=== PATIENT | female | born 1990 | race Caucasian/White ===

== ENCOUNTER 2017-02-22 10:57 | Emergency (ER) | payer OTHER ==
[~2017-02-22] VITALS: Ht 162.6 cm; Wt 55.0 kg
[~2017-02-22 10:57] MED LIST: BACT800T5 PO; BENZ0.5T PO; CLON.5 PO; GEOD60CA PO; LAMI200T PO; MAGN1SOL2 PO; WELL150T PO; ZOFR4TAB3 SL
[2017-02-22 11:33] VITALS: BP 102/52; PULSE 90; RESP 18; TEMP 98.3; O2SAT 98
[2017-02-22 11:39] LABS: AUTOMATED NEUTROPHIL # 3.7 TH/MM3 (1.8-7.7); BASOPHIL % 0.7 % (0.0-2.0); EOSINOPHIL # 0.3 TH/MM3 (0-0.4); EOSINOPHIL % 5.5 % (0.0-4.0); HEMATOCRIT 38.2 % (35.0-46.0); HEMOGLOBIN 13.8 GM/DL (11.6-15.3); LYMPH % 22.1 % (9.0-44.0); LYMPHOCYTE # 1.3 TH/MM3 (1.0-4.8); MEAN CELL VOLUME 89.1 FL (80.0-100.0); MEAN CORPUSCULAR HEMOGLOBIN 32.2 PG (27.0-34.0); MEAN PLATELET VOLUME 9.2 FL (7.0-11.0); MONOCYTE # 0.5 TH/MM3 (0-0.9); NEUT % 63.7 % (16.0-70.0); PLATELET COUNT 316 TH/MM3 (150-450); RED BLOOD COUNT 4.29 MIL/MM3 (4.00-5.30); RED CELL DISTRIBUTION WIDTH 12.9 % (11.6-17.2); WHITE BLOOD COUNT 5.7 TH/MM3 (4.0-11.0)
[2017-02-22 11:51] LABS: MEAN CORPUSCULAR HGB CONC 36.2 % (32.0-36.0)
[2017-02-22 11:57] LABS: ALT (GPT) 50 U/L (10-53); AST (GOT) 16 U/L (15-37); BICARBONATE 31.5 MEQ/L (21.0-32.0); BLOOD UREA NITROGEN 20 MG/DL (7-18); CALCIUM 8.6 MG/DL (8.5-10.1); CHLORIDE 105 MEQ/L (98-107); CREATININE 0.94 MG/DL (0.50-1.00); GLOMERULAR FILTRATION RATE 73 ML/MIN (>89); GLUCOSE,RANDOM 84 MG/DL (74-106); SODIUM (NA) 140 MEQ/L (136-145)
[2017-02-22 11:59] LABS: ALKALINE PHOSPHATASE 61 U/L (45-117); TOTAL BILIRUBIN ADULT 0.4 MG/DL (0.2-1.0); TOTAL PROTEIN 7.2 GM/DL (6.4-8.2)
--- NOTE | 2017-02-22 12:55 | PD ---
HPI Chief Complaint: Psychiatric Symptoms Time Seen by Provider: 11:16 Travel History International Travel<30 days: No Contact w/Intl Traveler<30days: No Traveled to known affect area: No History of Present Illness HPI Patient's 26-year-old female presenting to emergency for under Hood act due to and attempted overdose and suicidal ideations. Patient states that she took 10 Xanax at 9 PM last night in an attempt to escape everything. She lives with her grandmother but she reported this to her mother who then called 911. Patient reports a previous suicide attempt 2 years ago. She reports a history of bipolar disorder, PTSD. She will not elaborate as to why she is feeling more depressed and suicidal stating that it was private. She denies any physical complaints at this time, patient states that she has a job working for the [employer] and it's very stressful. Patient further stated that she thought about taking other medications that she had access to but didn't. She reports that she only takes a certain amount of pills to overdose because she is afraid of actually doing it. PFSH Past Medical History Bipolar Disorder: Yes Anxiety: Yes Depression: Yes Cardiovascular Problems: No Diminished Hearing: No Gastrointestinal Disorders: Yes (SPLEENOMEGALY) Genitourinary: No Musculoskeletal: No Neurologic: No Reproductive: No Respiratory: No Immunizations Current: Yes Schizophrenia: Yes ?: Not : 0 Past Surgical History Other Surgery: No Social History Alcohol Use: Yes (RARELY) Tobacco Use: No Substance Use: No Allergies-Medications (Allergen,Severity, Reaction): Coded Allergies: No Known Allergies (Unverified Adverse Reaction, Unknown, 02/22/17) Reported Meds & Prescriptions Reported Meds & Active Scripts Active Zofran ODT (Ondansetron HCl) 4 Mg Tab 4 Mg SL Q6HR FOR NAUSEA/VOMITING Magnesium Citrate 300 Ml Soln 300 Ml PO DIRECTED PRN Bactrim DS (Sulfamethoxazole-Trimethoprim DS) 1 Tab Tab 1 Tab PO BID 7 Days Reported Geodon (Ziprasidone) 60 Mg Cap 120 Mg PO HS Klonopin (Clonazepam) 0.5 Mg Tab 0.5 Mg PO HS Wellbutrin Sr (Bupropion HCl) 150 Mg Tab 300 Mg PO Cogentin (Benztropine Mesylate) 0.5 Mg Tab 0.5 Mg PO HS Lamictal (Lamotrigine) 200 Mg Tab 200 Mg PO HS Review of Systems Except as stated in HPI: all other systems reviewed are Neg Psychiatric: Positive: Depression, Suicidal Ideations Physical Exam Narrative GENERAL: Well-developed, well-nourished, alert female. Resting in no acute distress. SKIN: Warm and dry. HEAD: Atraumatic. Normocephalic. EYES: Pupils equal and round. No scleral icterus. No injection or drainage. ENT: No nasal bleeding or discharge. Mucous membranes pink and moist. NECK: Trachea midline. No JVD. CARDIOVASCULAR: Regular rate and rhythm. RESPIRATORY: No accessory muscle use. Clear to auscultation. Breath sounds equal bilaterally. GASTROINTESTINAL: Abdomen soft, non-tender, nondistended. Hepatic and splenic margins not palpable. MUSCULOSKELETAL: Extremities without clubbing, cyanosis, or edema. No obvious deformities. NEUROLOGICAL: Awake and alert. No obvious cranial nerve deficits. Motor grossly within normal limits. Five out of 5 muscle strength in the arms and legs. Normal speech. PSYCHIATRIC: Flat mood and affect; insight and judgment normal. Data Data Last Documented VS Vital Signs Date Time Temp Pulse Resp B/P (MAP) Pulse Ox O2 Delivery O2 Flow Rate FiO2 02/22/17 11:33 98.3 90 18 102/52 (69) 98 Orders Orders Complete Blood Count With Diff (02/22/17 11:17) Comprehensive Metabolic Panel (02/22/17 11:17) Psych Screen (02/22/17 11:17) Drug Screen, Random Urine (02/22/17 11:17) Alcohol (Ethanol) (02/22/17 11:17) Diet Regular Basic (02/22/17 Lunch) Ed Discharge Order (02/22/17 13:36) Labs Laboratory Tests Test 02/22/17 11:23 02/22/17 11:30 White Blood Count 5.7 TH/MM3 Red Blood Count 4.29 MIL/MM3 Hemoglobin 13.8 GM/DL Hematocrit 38.2 % Mean Corpuscular Volume 89.1 FL Mean Corpuscular Hemoglobin 32.2 PG Mean Corpuscular Hemoglobin Concent 36.2 % Red Cell Distribution Width 12.9 % Platelet Count 316 TH/MM3 Mean Platelet Volume 9.2 FL Neutrophils (%) (Auto) 63.7 % Lymphocytes (%) (Auto) 22.1 % Monocytes (%) (Auto) 8.0 % Eosinophils (%) (Auto) 5.5 % Basophils (%) (Auto) 0.7 % Neutrophils # (Auto) 3.7 TH/MM3 Lymphocytes # (Auto) 1.3 TH/MM3 Monocytes # (Auto) 0.5 TH/MM3 Eosinophils # (Auto) 0.3 TH/MM3 Basophils # (Auto) 0.0 TH/MM3 CBC Comment AUTO DIFF Differential Comment AUTO DIFF CONFIRMED Blood Urea Nitrogen 20 MG/DL Creatinine 0.94 MG/DL Random Glucose 84 MG/DL Total Protein 7.2 GM/DL Albumin 4.0 GM/DL Calcium Level 8.6 MG/DL Alkaline Phosphatase 61 U/L Aspartate Amino Transf (AST/SGOT) 16 U/L Alanine Aminotransferase (ALT/SGPT) 50 U/L Total Bilirubin 0.4 MG/DL Sodium Level 140 MEQ/L Potassium Level 4.6 MEQ/L Chloride Level 105 MEQ/L Carbon Dioxide Level 31.5 MEQ/L Anion Gap 4 MEQ/L Estimat Glomerular Filtration Rate 73 ML/MIN Ethyl Alcohol Level LESS THAN 3 MG/DL Urine Opiates Screen NEG Urine Barbiturates Screen NEG Urine Amphetamines Screen NEG Urine Benzodiazepines Screen POS Urine Cocaine Screen NEG Urine Cannabinoids Screen NEG MDM Medical Decision Making Medical Screen Exam Complete: Yes Emergency Medical Condition: Yes Interpretation(s) Laboratory Tests Test 02/22/17 11:23 02/22/17 11:30 White Blood Count 5.7 TH/MM3 Red Blood Count 4.29 MIL/MM3 Hemoglobin 13.8 GM/DL Hematocrit 38.2 % Mean Corpuscular Volume 89.1 FL Mean Corpuscular Hemoglobin 32.2 PG Mean Corpuscular Hemoglobin Concent 36.2 % Red Cell Distribution Width 12.9 % Platelet Count 316 TH/MM3 Mean Platelet Volume 9.2 FL Neutrophils (%) (Auto) 63.7 % Lymphocytes (%) (Auto) 22.1 % Monocytes (%) (Auto) 8.0 % Eosinophils (%) (Auto) 5.5 % Basophils (%) (Auto) 0.7 % Neutrophils # (Auto) 3.7 TH/MM3 Lymphocytes # (Auto) 1.3 TH/MM3 Monocytes # (Auto) 0.5 TH/MM3 Eosinophils # (Auto) 0.3 TH/MM3 Basophils # (Auto) 0.0 TH/MM3 CBC Comment AUTO DIFF Differential Comment AUTO DIFF CONFIRMED Blood Urea Nitrogen 20 MG/DL Creatinine 0.94 MG/DL Random Glucose 84 MG/DL Total Protein 7.2 GM/DL Albumin 4.0 GM/DL Calcium Level 8.6 MG/DL Alkaline Phosphatase 61 U/L Aspartate Amino Transf (AST/SGOT) 16 U/L Alanine Aminotransferase (ALT/SGPT) 50 U/L Total Bilirubin 0.4 MG/DL Sodium Level 140 MEQ/L Potassium Level 4.6 MEQ/L Chloride Level 105 MEQ/L Carbon Dioxide Level 31.5 MEQ/L Anion Gap 4 MEQ/L Estimat Glomerular Filtration Rate 73 ML/MIN Ethyl Alcohol Level LESS THAN 3 MG/DL Urine Opiates Screen NEG Urine Barbiturates Screen NEG Urine Amphetamines Screen NEG Urine Benzodiazepines Screen POS Urine Cocaine Screen NEG Urine Cannabinoids Screen NEG Vital Signs Date Time Temp Pulse Resp B/P (MAP) Pulse Ox O2 Delivery O2 Flow Rate FiO2 02/22/17 11:33 98.3 90 18 102/52 (69) 98 02/22/17 11:16 85 16 Differential Diagnosis Mood disorder versus of suicidal ideations versus metabolic abnormality versus respiratory depression versus other Narrative Course She presented under Drake act her to suicidal ideations and attempted overdose. Patient's vital signs are stable, she is alert and cooperative at this time. Mental health screening discussed with the patient. Psychiatric screen ordered. Labs reviewed, no acute findings identified. Medically cleared for psychiatric evaluation. After patient was medically cleared, psychiatrist evaluated patient left at the [facility]. Patient was diagnosed with benzodiazepine abuse as well as borderline personality disorder. Patient is stable for discharge. Diagnosis Primary Impression: Medical clearance for psychiatric admission Additional Impression: Benzodiazepine abuse Referrals: [facility] Patient Instructions: Benzodiazepine Abuse (ED), General Instructions Additional Instructions: Take medications only as directed Follow-up with Rey Romero Follow-up with your primary doctor's office Return to emergency department for any new or worsening symptoms Med/Other Pt SpecificInfo: No Change to Meds Disposition: 01 DISCHARGE HOME Condition: Stable Kasia Quijano Feb 22, 2017 12:55
--- NOTE | 2017-02-22 13:19 | PD ---
History of Present Illness Chief Complaint: Psychiatric Symptoms Time Seen by Provider: 12:45 Travel History International Travel<30 Days: No Contact w/Intl Traveler<30days: No Known affected area: No Legal Status Legal Status: Hood Act History of Present Illness: 26-year-old female brought in under a Hood act for taking 10 Xanax pills last night and making suicidal type comments. Upon interview this afternoon, the patient is currently denying any suicidal or homicidal ideation, plan or intent. She states she does sometimes think about it but her actions last night were not intended to kill herself. As she reported to the emergency department attending last evening, she had other medicines she could have taken if she really wanted to . She states she has her "dream job" at the present time and doesn't want to do anything to jeopardize this job. She does report a history of suicidal behavior 2 years ago and a history of bipolar disorder and PTSD. She will not elaborate on the source of her PTSD. She attributes this abuse of Xanax on her bipolar disorder stating "if you know bipolar disorder, you know these feelings come over me suddenly". (This physician sees no current significant objective clinical evidence of bipolar disorder.) Patient appears to have borderline personality disorder. PFSH Past Medical History Bipolar Disorder: Yes Anxiety: Yes Depression: Yes Cardiovascular Problems: No Diminished Hearing: No Gastrointestinal Disorders: Yes (SPLEENOMEGALY) Genitourinary: No Musculoskeletal: No Neurologic: No Reproductive: No Respiratory: No Immunizations Current: Yes Schizophrenia: Yes ?: Not : 0 Past Surgical History Other Surgery: No Psychiatric History Psychiatric History Hx Psychiatric Treatment: has been treated by Dr.Nelita Leo MD psychiatrist for the past 2 years. has been placed under a Hood Act twice and admitted x1 at [facility] and x1 and admitted to [facility]. States that she has been noncompliant with medications because of her nights and days run together. Biological father (Bipolar/Schizophrenia) and biological paternal grandmother (Bipolar/Schizophrenia). Biological Maternal grandmother's brother (Bipolar) successfully commited suicide by shooting himself in the head at age 29. Patient fears growing up like her father. History of Inpatient Treatment: Yes Social History Hx Alcohol Use: Yes (RARELY) Hx Tobacco Use: No Hx Substance Use: No Substance Use Type: Alcohol, Marijuana, Amphetamines-Stimulants, Ecstasy, Nicotine/Cigarettes, Prescription Medications, Benzos (Valium,Xanax), Cocaine, Synth Opiates-Pain Pills Other Substances Used: Hx Mollie Use per . Hx of Substance Use Treatment: No Allergies-Medications (Allergen,Severity, Reaction): Coded Allergies: No Known Allergies (Unverified Adverse Reaction, Unknown, 02/22/17) Reported Meds & Prescriptions Reported Meds & Active Scripts Active Zofran ODT (Ondansetron HCl) 4 Mg Tab 4 Mg SL Q6HR FOR NAUSEA/VOMITING Magnesium Citrate 300 Ml Soln 300 Ml PO DIRECTED PRN Bactrim DS (Sulfamethoxazole-Trimethoprim DS) 1 Tab Tab 1 Tab PO BID 7 Days Reported Geodon (Ziprasidone) 60 Mg Cap 120 Mg PO HS Klonopin (Clonazepam) 0.5 Mg Tab 0.5 Mg PO HS Wellbutrin Sr (Bupropion HCl) 150 Mg Tab 300 Mg PO Cogentin (Benztropine Mesylate) 0.5 Mg Tab 0.5 Mg PO HS Lamictal (Lamotrigine) 200 Mg Tab 200 Mg PO HS Review of Systems Except as stated in HPI: all other systems reviewed are Neg Mental Status Examination Appearance: Appropriate Consciousness: Alert Orientation: x4 Motor Activity: Normal gait Speech: Unremarkable Language: Adequate Fund of Knowledge: Adequate Attention and Concentration: Adequate Memory: Unremarkable Mood: Appropriate Affect: Appropriate Thought Process & Associations: Intact Thought Content: Appropriate Hallucination Type: None Delusion Type: None Suicidal Ideation: No Suicidal Plan: No Suicidal Intention: No Homicidal Ideation: No Homicidal Plan: No Homicidal Intention: No Insight: Adequate Judgment: Adequate MDM Medical Decision Making Medical Record Reviewed: Yes Assessment/Plan Patient interviewed at bedside. Electronic medical record reviewed. Case discussed with nurse Wanda. Patient appears to have borderline personality disorder and would best be served by not admitting her to the hospital. It is felt to be important the patient continue to work. She lives with her grandparents. She is willing and able to seek outpatient treatment. She was given a referral to Dr. Sea Loco even though she currently has outpatient treatment. She is verbally brian for safety and she is competent to do so. Least restrictive alternative also applies. Orders Orders Complete Blood Count With Diff (02/22/17 11:17) Comprehensive Metabolic Panel (02/22/17 11:17) Psych Screen (02/22/17 11:17) Drug Screen, Random Urine (02/22/17 11:17) Alcohol (Ethanol) (02/22/17 11:17) Diet Regular Basic (02/22/17 Lunch) Results Vital Signs Date Time Temp Pulse Resp B/P (MAP) Pulse Ox O2 Delivery O2 Flow Rate FiO2 02/22/17 11:33 98.3 90 18 102/52 (69) 98 02/22/17 11:16 85 16 Laboratory Tests Test 02/22/17 11:23 02/22/17 11:30 White Blood Count 5.7 Red Blood Count 4.29 Hemoglobin 13.8 Hematocrit 38.2 Mean Corpuscular Volume 89.1 Mean Corpuscular Hemoglobin 32.2 Mean Corpuscular Hemoglobin Concent 36.2 Red Cell Distribution Width 12.9 Platelet Count 316 Mean Platelet Volume 9.2 Neutrophils (%) (Auto) 63.7 Lymphocytes (%) (Auto) 22.1 Monocytes (%) (Auto) 8.0 Eosinophils (%) (Auto) 5.5 Basophils (%) (Auto) 0.7 Neutrophils # (Auto) 3.7 Lymphocytes # (Auto) 1.3 Monocytes # (Auto) 0.5 Eosinophils # (Auto) 0.3 Basophils # (Auto) 0.0 CBC Comment AUTO DIFF Differential Comment AUTO DIFF CONFIRMED Blood Urea Nitrogen 20 Creatinine 0.94 Random Glucose 84 Total Protein 7.2 Albumin 4.0 Calcium Level 8.6 Alkaline Phosphatase 61 Aspartate Amino Transf (AST/SGOT) 16 Alanine Aminotransferase (ALT/SGPT) 50 Total Bilirubin 0.4 Sodium Level 140 Potassium Level 4.6 Chloride Level 105 Carbon Dioxide Level 31.5 Anion Gap 4 Estimat Glomerular Filtration Rate 73 Ethyl Alcohol Level LESS THAN 3 Urine Opiates Screen NEG Urine Barbiturates Screen NEG Urine Amphetamines Screen NEG Urine Benzodiazepines Screen POS Urine Cocaine Screen NEG Urine Cannabinoids Screen NEG Diagnosis Primary Impression: Benzodiazepine abuse Condition: Stable Fam Bear MD Feb 22, 2017 13:19
[2017-02-22 14:10] VITALS: BP_SYST 101; BP_SYST 109; BP_SYST 113; BP_DIAS 55; BP_DIAS 68; BP_DIAS 73
[2017-02-22 14:15] VITALS: BP 101/55
== END 2017-02-22 14:05 | disposition home or self-care (01) ==
LOC: NEPD 10:57
DX: F13.10 Sedative, hypnotic or anxiolytic abuse, uncomplicated (principal); F31.9 Bipolar disorder, unspecified; F20.9 Schizophrenia, unspecified; F41.9 Anxiety disorder, unspecified; R45.851 Suicidal ideations
CPT/HCPCS: 80053; 80307; 85025; 99284

== ENCOUNTER 2017-05-28 15:53 | Emergency (ER) | payer OTHER ==
[~2017-05-28] VITALS: Ht 172.7 cm; Wt 67.2 kg
[2017-05-28 15:56] VITALS: BP 150/91; PULSE 75; RESP 16; TEMP 97.8; O2SAT 99
[2017-05-28] MEDS ORDERED: WELLTAB39 PO (16:23)
[2017-05-28] MEDS ORDERED: LAMI200T PO (16:23)
[2017-05-28] MEDS ORDERED: PERI0.126 SWISH-SPIT (16:26)
[2017-05-28] MEDS ORDERED: CLIN300C5 PO (16:26)
--- NOTE | 2017-05-28 16:28 | PD ---
HPI Chief Complaint: Oral / Dental Pain or Problem Time Seen by Provider: 16:18 Travel History International Travel<30 days: No Contact w/Intl Traveler<30days: No Traveled to known affect area: No History of Present Illness HPI 26-year-old female presents to the emergency department for possible dental infection. Patient states that she noticed swelling and felt like something ruptured today. She states she feels like she has a fever, but she does not. She reports history of bipolar disorder. She denies . Patient states she was supposed to have a root canal, but did not. Current pain/10, aching, without radiation. Mild severity. PFSH Past Medical History Bipolar Disorder: Yes Anxiety: Yes Depression: Yes Cardiovascular Problems: No Diminished Hearing: No Gastrointestinal Disorders: Yes (hx of SPLEENOMEGALY) Genitourinary: No Musculoskeletal: No Neurologic: No Reproductive: No Respiratory: No Immunizations Current: Yes Schizophrenia: Yes Tetanus Vaccination: Unknown Influenza Vaccination: No ?: Not LMP: 05/01/17 : 0 Past Surgical History Surgical History: No Previous Surgery Other Surgery: No Social History Alcohol Use: Yes (RARELY) Tobacco Use: No Substance Use: No Allergies-Medications (Allergen,Severity, Reaction): Coded Allergies: No Known Allergies (Unverified Adverse Reaction, Unknown, 05/28/17) Reported Meds & Prescriptions Reported Meds & Active Scripts Active Zofran ODT (Ondansetron HCl) 4 Mg Tab 4 Mg SL Q6HR FOR NAUSEA/VOMITING Magnesium Citrate 300 Ml Soln 300 Ml PO DIRECTED PRN Bactrim DS (Sulfamethoxazole-Trimethoprim DS) 1 Tab Tab 1 Tab PO BID 7 Days Reported Geodon (Ziprasidone) 60 Mg Cap 120 Mg PO HS Klonopin (Clonazepam) 0.5 Mg Tab 0.5 Mg PO HS Wellbutrin Sr (Bupropion HCl) 150 Mg Tab 300 Mg PO Cogentin (Benztropine Mesylate) 0.5 Mg Tab 0.5 Mg PO HS Lamictal (Lamotrigine) 200 Mg Tab 200 Mg PO HS Review of Systems Except as stated in HPI: all other systems reviewed are Neg Physical Exam Narrative GENERAL: Well-nourished, well-developed female patient, ambulatory. Afebrile. SKIN: Focused skin assessment warm/dry. No facial swelling HEAD: Normocephalic. Atraumatic ENT: Mucosa pink and moist. No erythema or exudates. No uvular edema. No uvular , palatal, or tonsillar deviation. Airway patent. Nasal turbinates appear normal without nasal blood, purulent drainage or septal hematoma. Bilateral tympanic membranes clear without erythema or perforation. No evidence of dental abscess. Tooth #29 is broken and tooth #30 is missing. EYES: No scleral icterus. No injection or drainage. NECK: Supple, trachea midline. No JVD or lymphadenopathy. CARDIOVASCULAR: Regular rate and rhythm without murmurs, gallops, or rubs. RESPIRATORY: Breath sounds equal bilaterally. No accessory muscle use. Lung sounds are clear to auscultation GASTROINTESTINAL: Abdomen soft, non-tender, nondistended. MUSCULOSKELETAL: No cyanosis, or edema. Data Data Last Documented VS Vital Signs Date Time Temp Pulse Resp B/P (MAP) Pulse Ox O2 Delivery O2 Flow Rate FiO2 05/28/17 16:18 16 05/28/17 15:56 97.8 75 150/91 (110) 99 MDM Medical Decision Making Medical Screen Exam Complete: Yes Emergency Medical Condition: Yes Medical Record Reviewed: Yes Differential Diagnosis Dental abscess versus gingivitis versus dentalgia Narrative Course 26-year-old female presents to the emergency department for evaluation of possible infection in her mouth. No evidence of acute dental abscess on exam, but patient states she felt like one ruptured earlier. She is tender to palpation over the gingiva below tooth #29. Patient will be covered for possible dental abscess with clindamycin, Peridex oral solution. She is taking [id number] ibuprofen for pain. She is instructed to follow-up with her dentist. The patient was discharged in stable condition with instructions, including return instructions and follow up instructions. Diagnosis Primary Impression: Dental abscess Referrals: Dentist call for appointment Patient Instructions: Dental Abscess (ED), General Instructions Additional Instructions: Take antibiotic as directed until gone. Use Peridex oral solution as directed. Follow-up with a dentist. Return to the emergency department for any acute worsening of symptoms. Med/Other Pt SpecificInfo: Prescription(s) given Scripts Chlorhexidine Gluconate (Mouth) Liq (Peridex Liq) 0.12% Soln 15 ML SWISH-SPIT BID, #473 ML 0 Refills Prov: Anastasia Oconnor 05/28/17 Clindamycin (Clindamycin) 300 Mg Cap 300 MG PO Q6H for Infection for 10 Days, #40 CAP 0 Refills Prov: Anastasia Oconnor 05/28/17 Disposition: 01 DISCHARGE HOME Condition: Stable Anastasia Oconnor May 28, 2017 16:28
[2017-05-28] MEDS ORDERED: IBUPROFEN 600 MG TAB PO ONE (16:45)
== END 2017-05-28 16:50 | disposition home or self-care (01) ==
LOC: PHEFT 15:53
DX: K04.7 Periapical abscess without sinus (principal); F31.9 Bipolar disorder, unspecified; F41.9 Anxiety disorder, unspecified; F20.9 Schizophrenia, unspecified; Z79.899 Other long term (current) drug therapy
CPT/HCPCS: 99283